=== PATIENT | male | born 1955 | race Caucasian/White ===

== ENCOUNTER 2017-03-19 01:06 | Emergency (ER) | payer MEDICAID, OTHER, SELFPAY ==
[~2017-03-19] VITALS: Ht 170.2 cm; Wt 91.1 kg
[2017-03-19] MEDS ORDERED: QUET50TA8 PO (01:26)
[2017-03-19] MEDS ORDERED: NAPR500T3 PO (01:27)
[2017-03-19] MEDS ORDERED: PROP60TA PO (01:27)
[2017-03-19] MEDS ORDERED: OMEP-110 PO (01:28)
[2017-03-19] MEDS ORDERED: CYCL-259 PO (01:28)
[2017-03-19] MEDS ORDERED: TOPI50TA77 PO (01:29)
[2017-03-19] MEDS ORDERED: SUMA25TA4 PO (01:33)
[2017-03-19] MEDS ORDERED: SODIUM CHLORIDE FLUSH 10ML SYR IVF ONE (02:00)
[2017-03-19] MEDS ORDERED: SODIUM CHLORIDE 0.9% 1,000ML IVBOLUS ONE (02:00)
[2017-03-19 02:10] LABS: ASPARTATE AMINO TRANSFERASE 27 U/L (15-37); BLOOD UREA NITROGEN 13 mg/dL (7-18)
[2017-03-19 02:13] LABS: IS PT STATUS REG ER OR PRE ER? YES
[2017-03-19 03:48] VITALS: BP 120/67
== END 2017-03-19 04:05 | disposition home or self-care (01) ==
LOC: ED 02:34
DX: R73.9 Hyperglycemia, unspecified (principal); R42 Dizziness and giddiness; R19.7 Diarrhea, unspecified; K21.9 Gastro-esophageal reflux disease without esophagitis
CPT/HCPCS: 36415; 70450; 71020; 74020; 80053; 84484; 85025; 93005; 99284; J7030